=== PATIENT | female | born 1935 | race Caucasian/White ===

== ENCOUNTER 2016-06-11 20:05 | Emergency (ER) | payer MEDICARE, BC ==
[~2016-06-11] VITALS: Ht 160 cm; Wt 68.2 kg
[~2016-06-11 20:05] MED LIST: ARIMIDEX1 MG PO; ASPIRIN 81M81 MG/TA2 PO; B-121000 MCG PO; CALCIUM 600600 M2 PO; COZAAR100 MG PO; EYE DROPS 15 ML15 ML OP; HERCEPTIN440 MG/VIA; LEVAQUIN 5500 MG/TA1 PO; LORTAB 5/500 501 TAB PO; LUTEIN6 MG; NATURE'S BLE1000 MCG PO; PAMELOR50 MG PO; PRINIVIL10 MG PO; SEN-O-TABS8.6 MG PO; SENOKOT8.6 MG PO; VITAMIN C500 MG PO; VITAMIN D31000 IU PO; VITAMIN E1000 U/CAP PO; XALATAN EYE DROPS OU; ZOCOR 40MG40 MG PO
[2016-06-11 20:07] VITALS: BP 132/83; PULSE 115; TEMP 98.6
[2016-06-11 20:32] LABS: BASO % 0.3 % (0.0-2.0); EOS % 0.1 % (0-4.0); GRAN # 9.2 (1.4-6.5); GRAN % 86.6 % (42.2-75.2); HEMATOCRIT 42.4 % (37.0-47.0); LYMPH # 0.5 (1.2-3.4); LYMPH % 5.1 % (20.0-51.0); MEAN CELL VOLUME 89 fl (80.0-100.0); MEAN CORPUSCULAR HEMOGLOBIN 29 pg (27.0-31.0); MEAN CORPUSCULAR HGB CONC 33 g/dl (33.0-37.0); MEAN PLATELET VOLUME 9.9 fl (7.4-10.4); MONO # 0.8 (0.1-0.6); MONO % 7.5 % (1.7-9.3); PLATELET COUNT 234 K/mm3 (130-400); RED BLOOD COUNT 4.79 M/mm3 (4.10-5.30); REDCELL DISTRIBUTION WIDTH-CV 14.6 % (11.5-14.5); WHITE BLOOD COUNT 10.6 K/mm3 (4.8-10.8)
[2016-06-11 20:42] LABS: CALCIUM 9.3 mg/dL (8.4-10.2); CREATININE, serum 0.75 mg/dL (0.52-1.25); POTASSIUM 3.8 mmol/L (3.4-5.0)
[2016-06-11] MEDS ORDERED: ZOFRAN ODT4 MG PO (21:23)
== END 2016-06-11 21:30 | disposition home or self-care (01) ==
LOC: COL.ER 20:05
PROVIDERS: Emergency Medicine
DX: R11.2 Nausea with vomiting, unspecified (principal); R19.7 Diarrhea, unspecified
CPT/HCPCS: J2405; J7030

== ENCOUNTER 2016-06-11 23:05 | Inpatient (IN) | payer MEDICARE, BC ==
[~2016-06-11] VITALS: Ht 160 cm; Wt 69.7 kg
[~2016-06-11 23:05] MED LIST changes: +ZOFRAN ODT4 MG PO
[2016-06-12 04:02] VITALS: BP 121/49; PULSE 90; TEMP 98.7
[2016-06-12 05:05] LABS: PARTIAL THROMBOPLASTIN TIME 23.1 SECONDS (26.0-37.0)
[2016-06-12 08:20] VITALS: BP 132/42; PULSE 89; TEMP 97.6
[2016-06-12 11:38] VITALS: BP 144/64; PULSE 92; TEMP 99
[2016-06-12 17:01] VITALS: BP 159/60; PULSE 101; TEMP 100
[2016-06-12 17:44] LABS: ADJUSTED CALCIUM 8.5 mg/dL (8.4-10.2); ALBUMIN 3.5 gm/dL (3.5-5.0); BILIRUBIN,TOTAL 0.7 mg/dL (0.0-1.0); CALCIUM 8.1 mg/dL (8.4-10.2); CREATININE, serum 0.66 mg/dL (0.52-1.25); MAGNESIUM 1.7 mg/dL (1.6-2.3)
[2016-06-12 17:46] LABS: POTASSIUM 2.9 mmol/L (3.4-5.0)
[2016-06-12 18:17] LABS: ADD PATHOLOGY DIFF REVIEW NO
[2016-06-12 18:19] LABS: HEMATOCRIT 38.1 % (37.0-47.0); HEMOGLOBIN 12.4 g/dl (12.5-16.0); MEAN CELL VOLUME 90 fl (80.0-100.0); MEAN CORPUSCULAR HEMOGLOBIN 29 pg (27.0-31.0); MEAN CORPUSCULAR HGB CONC 33 g/dl (33.0-37.0); MEAN PLATELET VOLUME 9.9 fl (7.4-10.4); PLATELET COUNT 195 K/mm3 (130-400); RED BLOOD COUNT 4.23 M/mm3 (4.10-5.30); REDCELL DISTRIBUTION WIDTH-CV 15.1 % (11.5-14.5); WHITE BLOOD COUNT 8.4 K/mm3 (4.8-10.8)
[2016-06-12 18:41] LABS: BAND 51 % (0-10); BASOPHIL 1 % (0-2); NEUTROPHILS 37 % (42.0-75.2); PLATELET ESTIMATE NORMAL (NORMAL); TOTAL CELLS COUNTED 100
[2016-06-12 20:17] VITALS: BP 105/43; PULSE 91; TEMP 99.8
[2016-06-13 00:25] VITALS: BP 106/86; PULSE 102; TEMP 101.1
[2016-06-13 01:14] LABS: CALCIUM 7.8 mg/dL (8.4-10.2); CREATININE, serum 0.62 mg/dL (0.52-1.25); POTASSIUM 3.8 mmol/L (3.4-5.0)
[2016-06-13 03:13] VITALS: BP 108/59; PULSE 89; TEMP 99.2
[2016-06-13 08:10] LABS: POTASSIUM 3.7 mmol/L (3.4-5.0)
[2016-06-13 09:42] VITALS: BP 129/65; PULSE 119; TEMP 97.8
[2016-06-13 11:50] LABS: THYROID STIMULATING HORMONE 0.629 uIU/mL (0.465-4.680)
[2016-06-13 12:05] VITALS: BP 120/58; PULSE 92; TEMP 98.7
[2016-06-13 16:35] VITALS: BP 142/67; PULSE 86; TEMP 98.4
[2016-06-13 20:46] VITALS: BP 137/82; PULSE 85; TEMP 98.3
[2016-06-14] VITALS (7 sets, daily range): BP systolic 126–153; BP diastolic 57–91; PULSE 73–88; TEMP 98.1–98.7
[2016-06-14 07:56] LABS: MEAN CELL VOLUME 91 fl (80.0-100.0); MEAN CORPUSCULAR HGB CONC 32 g/dl (33.0-37.0); PLATELET COUNT 181 K/mm3 (130-400); RED BLOOD COUNT 3.91 M/mm3 (4.10-5.30); REDCELL DISTRIBUTION WIDTH-CV 15.3 % (11.5-14.5); WHITE BLOOD COUNT 3.3 K/mm3 (4.8-10.8)
[2016-06-14 07:57] LABS: HEMATOCRIT 35.5 % (37.0-47.0); HEMOGLOBIN 11.5 g/dl (12.5-16.0); MEAN CORPUSCULAR HEMOGLOBIN 29 pg (27.0-31.0)
[2016-06-15 03:37] VITALS: BP 134/61; PULSE 84; TEMP 98.5
[2016-06-15 07:34] VITALS: BP 146/77; PULSE 85; TEMP 97.7
[2016-06-15 09:05] LABS: CALCIUM 8.6 mg/dL (8.4-10.2); CREATININE, serum 0.63 mg/dL (0.52-1.25); MAGNESIUM 1.8 mg/dL (1.6-2.3); POTASSIUM 3.4 mmol/L (3.4-5.0)
[2016-06-15 11:31] VITALS: BP 151/76; PULSE 87; TEMP 98.6
[2016-06-15 15:49] VITALS: BP 128/58; PULSE 85; TEMP 98.7
[2016-06-15 20:00] VITALS: BP 145/75; PULSE 91; TEMP 98.4
[2016-06-15 22:48] VITALS: BP 143/71; PULSE 81; TEMP 98
[2016-06-16 03:58] VITALS: BP 118/52; PULSE 74; TEMP 98
[2016-06-16 06:39] LABS: HEMOGLOBIN 12.3 g/dl (12.5-16.0); MEAN CELL VOLUME 88 fl (80.0-100.0); MEAN CORPUSCULAR HEMOGLOBIN 29 pg (27.0-31.0); MEAN CORPUSCULAR HGB CONC 33 g/dl (33.0-37.0); MEAN PLATELET VOLUME 10.2 fl (7.4-10.4); PLATELET COUNT 228 K/mm3 (130-400); REDCELL DISTRIBUTION WIDTH-CV 14.8 % (11.5-14.5); WHITE BLOOD COUNT 5.7 K/mm3 (4.8-10.8)
[2016-06-16 06:49] LABS: HEMATOCRIT 36.9 % (37.0-47.0)
[2016-06-16 06:54] LABS: CALCIUM 9.1 mg/dL (8.4-10.2); CREATININE, serum 0.73 mg/dL (0.52-1.25); POTASSIUM 3.8 mmol/L (3.4-5.0)
[2016-06-16 07:49] VITALS: BP 147/76; PULSE 82; TEMP 97.8
[2016-06-16] MEDS ORDERED: CEPHALEXIN500 M1 PO (07:56)
[2016-06-16] MEDS ORDERED: MULTAQ400 MG PO (07:57)
[2016-06-16] MEDS ORDERED: ANTI-DIARRHEAL2 MG PO (08:00)
[2016-06-16 11:05] VITALS: BP 126/70; PULSE 87; TEMP 98
== END 2016-06-16 14:19 | disposition home or self-care (01) | DRG 262 ==
LOC: COL.ER 23:05 → MEDICAL 06-12 02:34
PROVIDERS: Internal Medicine; Nurse Practitioner Family
PROC: 0JH632Z Insertion of Monitoring Device into Chest Subcutaneous Tissue and Fascia, Percutaneous Approach (ICD-10-PCS; principal; 2016-06-13)
DX: I48.0 Paroxysmal atrial fibrillation (principal); I48.92 Unspecified atrial flutter; K52.9 Noninfective gastroenteritis and colitis, unspecified; E87.6 Hypokalemia; I10 Essential (primary) hypertension; Z85.3 Personal history of malignant neoplasm of breast; G62.9 Polyneuropathy, unspecified; Z91.81 History of falling
CPT/HCPCS: 99232-AI; 99239; C1764; C9113; G0378; G8978-GP; G8979-GP; J1644; J2405; J2550; J3480; J7030

== ENCOUNTER 2016-08-01 10:11 | Inpatient (IN) | payer MEDICARE, BC ==
[~2016-08-01] VITALS: Ht 160 cm; Wt 68.6 kg
[~2016-08-01 10:11] MED LIST changes: +ANTI-DIARRHEAL2 MG PO; +CEPHALEXIN500 M1 PO; +MULTAQ400 MG PO
[2016-08-05 08:43] VITALS: BP 138/64; PULSE 61; TEMP 98.4
[2016-08-05 09:14] LABS: BASO % 0.4 % (0.0-2.0); EOS # 0.1 (0.0-0.7); GRAN % 76.6 % (42.2-75.2); HEMATOCRIT 40.2 % (37.0-47.0); HEMOGLOBIN 13.2 g/dl (12.5-16.0); LYMPH # 1.1 (1.2-3.4); LYMPH % 13.8 % (20.0-51.0); MEAN CELL VOLUME 91 fl (80.0-100.0); MEAN CORPUSCULAR HEMOGLOBIN 30 pg (27.0-31.0); MEAN CORPUSCULAR HGB CONC 33 g/dl (33.0-37.0); MEAN PLATELET VOLUME 9.8 fl (7.4-10.4); MONO # 0.6 (0.1-0.6); MONO % 7.9 % (1.7-9.3); PLATELET COUNT 267 K/mm3 (130-400); RED BLOOD COUNT 4.43 M/mm3 (4.10-5.30); WHITE BLOOD COUNT 7.8 K/mm3 (4.8-10.8)
[2016-08-05 09:17] LABS: INR 0.9 (0.8-3.0); PROTHROMBIN TIME 10.2 SECONDS (9.7-12.8)
[2016-08-05 09:24] LABS: ADJUSTED CALCIUM 9.7 mg/dL (8.4-10.2); BILIRUBIN,TOTAL 0.7 mg/dL (0.0-1.0); CALCIUM 9.7 mg/dL (8.4-10.2); CREATININE, serum 0.67 mg/dL (0.52-1.25); MAGNESIUM 2.3 mg/dL (1.6-2.3); POTASSIUM 3.8 mmol/L (3.4-5.0); TOTAL PROTEIN 6.6 gm/dL (6.4-8.2)
[2016-08-05 11:46] VITALS: BP 150/69; PULSE 59; TEMP 97.6
[2016-08-05 16:14] VITALS: BP 137/63; PULSE 57; TEMP 97.7
[2016-08-05 19:27] VITALS: BP 115/50; PULSE 72; TEMP 97.4
[2016-08-05 23:11] VITALS: BP 111/45; PULSE 52; TEMP 97.5
[2016-08-06 03:54] VITALS: BP 117/51; PULSE 59; TEMP 97.5
[2016-08-06 07:46] VITALS: BP 123/58; PULSE 58; TEMP 97.4
[2016-08-06 11:45] VITALS: BP 125/61; PULSE 50; TEMP 97.8
[2016-08-06 16:26] VITALS: BP 120/58; PULSE 60; TEMP 96.7
[2016-08-06 21:41] VITALS: BP 118/59; PULSE 50; TEMP 97.2
[2016-08-07 00:32] VITALS: BP 129/58; PULSE 51; TEMP 97.8
[2016-08-07 04:30] VITALS: BP 121/66; PULSE 58; TEMP 98.2
[2016-08-07 08:07] VITALS: BP 119/52; PULSE 65; TEMP 97.9
[2016-08-07] MEDS ORDERED: BETAPACE 80MG80 MG PO (10:20)
[2016-08-07 11:35] VITALS: BP 141/62; PULSE 54; TEMP 98.8
== END 2016-08-07 12:30 | disposition home or self-care (01) | DRG 310 ==
LOC: MEDICAL 10:11
PROVIDERS: Internal Medicine Cardiovascular Disease
DX: I48.0 Paroxysmal atrial fibrillation (principal); I10 Essential (primary) hypertension; E78.5 Hyperlipidemia, unspecified; F41.9 Anxiety disorder, unspecified; I05.9 Rheumatic mitral valve disease, unspecified

== ENCOUNTER 2016-08-16 09:26 | Emergency (ER) | payer MEDICARE, BC ==
[~2016-08-16] VITALS: Ht 160 cm; Wt 66.8 kg
[~2016-08-16 09:26] MED LIST changes: +BETAPACE 80MG80 MG PO
[2016-08-16 09:41] VITALS: BP 138/63; TEMP 99.1
[2016-08-16] MEDS ORDERED: ZITHROMAX Z PA250 MG PO (10:21)
[2016-08-16 11:10] VITALS: PULSE 60
== END 2016-08-16 11:11 | disposition home or self-care (01) ==
LOC: COL.ER 09:26
DX: J01.90 Acute sinusitis, unspecified (principal); I10 Essential (primary) hypertension

== ENCOUNTER → 2017-02-17 | Outpatient (CLI) | payer MEDICARE, BC ==
[~2017-02-17] MED LIST changes: +ZITHROMAX Z PA250 MG PO
== END ==
LOC: MC.RAD 09:27
DX: Z12.31 Encounter for screening mammogram for malignant neoplasm of breast (principal); Z90.12 Acquired absence of left breast and nipple

== ENCOUNTER 2017-05-25 19:34 | Emergency (ER) | payer MEDICARE, BC ==
[~2017-05-25] VITALS: Ht 160 cm; Wt 67.3 kg
[2017-05-25 19:34] VITALS: TEMP 98.7
[2017-05-25 20:12] LABS: BASO % 0.2 % (0.0-2.0); EOS % 0.1 % (0-4.0); GRAN # 11.5 (1.4-6.5); GRAN % 88.5 % (42.2-75.2); HEMATOCRIT 41.2 % (37.0-47.0); HEMOGLOBIN 13.5 g/dl (12.5-16.0); LYMPH # 0.7 (1.2-3.4); LYMPH % 5.7 % (20.0-51.0); MEAN CELL VOLUME 93 fl (80.0-100.0); MEAN CORPUSCULAR HEMOGLOBIN 30 pg (27.0-31.0); MEAN CORPUSCULAR HGB CONC 33 g/dl (33.0-37.0); MEAN PLATELET VOLUME 10.1 fl (7.4-10.4); MONO # 0.6 (0.1-0.6); PLATELET COUNT 258 K/mm3 (130-400); RED BLOOD COUNT 4.45 M/mm3 (4.10-5.30); WHITE BLOOD COUNT 12.9 K/mm3 (4.8-10.8)
[2017-05-25 20:21] LABS: ALBUMIN 4.6 gm/dL (3.5-5.0); BILIRUBIN,TOTAL 0.8 mg/dL (0.0-1.0); CALCIUM 9.5 mg/dL (8.4-10.2); CREATININE, serum 0.92 mg/dL (0.52-1.25); POTASSIUM 3.8 mmol/L (3.4-5.0)
[2017-05-25 21:48] LABS: COLLECTION METHOD CLEAN CATCH
[2017-05-25 21:54] LABS: PH 7 (5-8); SQUAMOUS EPITHELIAL None Seen /hpf; URINE APPEARANCE Clear; URINE BACTERIA None Seen /hpf; URINE BILIRUBIN Negative (NEGATIVE); URINE BLOOD 1+ (NEGATIVE); URINE COLOR Straw; URINE GLUCOSE 1+ (NEGATIVE); URINE KETONE Trace (NEGATIVE); URINE LEUKOCYTE ESTERASE Negative (NEGATIVE); URINE PROTEIN(semi-quant) Negative (NEGATIVE); URINE RBC 0-2 /hpf; URINE UROBILINOGEN Negative (NEGATIVE)
[2017-05-25] MEDS ORDERED: ZOFRAN ODT4 MG PO (22:33)
[2017-05-25] MEDS ORDERED: NORCO 325 MG-51 TAB PO (22:33)
[2017-05-25 22:46] VITALS: BP 125/76; PULSE 98
== END 2017-05-25 23:00 | disposition home or self-care (01) ==
LOC: COL.ER 19:34
PROVIDERS: Emergency Medicine
DX: N23 Unspecified renal colic (principal); E86.0 Dehydration; I48.91 Unspecified atrial fibrillation; Z85.3 Personal history of malignant neoplasm of breast; Z90.710 Acquired absence of both cervix and uterus; Z92.21 Personal history of antineoplastic chemotherapy; Z79.82 Long term (current) use of aspirin
CPT/HCPCS: J1885; J2405; J3010; J7030; Q9967

== ENCOUNTER → 2017-12-30 | Outpatient (CLI) | payer MEDICARE, BC ==
[~2017-12-30] MED LIST changes: +NORCO 325 MG-51 TAB PO
== END ==
LOC: COL.RAD 10:18
DX: D35.2 Benign neoplasm of pituitary gland (principal); Z98.890 Other specified postprocedural states
CPT/HCPCS: A9585

== ENCOUNTER → 2018-03-09 | Outpatient (CLI) | payer MEDICARE, BC | LOC: MC.RAD 09:35 | DX: Z12.31 Encounter for screening mammogram for malignant neoplasm of breast (principal) ==

== ENCOUNTER → 2019-03-08 | Outpatient (CLI) | payer MEDICARE, BC | LOC: COL.RAD 09:36 | DX: Z01.812 Encounter for preprocedural laboratory examination (principal); D35.2 Benign neoplasm of pituitary gland; E21.3 Hyperparathyroidism, unspecified; E89.3 Postprocedural hypopituitarism; E55.9 Vitamin D deficiency, unspecified | CPT/HCPCS: A9585 ==

== ENCOUNTER → 2019-03-14 | Outpatient (CLI) | payer MEDICARE, BC | LOC: COL.RAD 12:00 | DX: I82.612 Acute embolism and thrombosis of superficial veins of left upper extremity (principal) ==

== ENCOUNTER → 2019-04-25 | Outpatient (CLI) | payer MEDICARE, BC | LOC: MC.RAD 07:08 | DX: Z12.31 Encounter for screening mammogram for malignant neoplasm of breast (principal); N64.89 Other specified disorders of breast ==

== ENCOUNTER → 2020-04-30 | Outpatient (CLI) | payer MEDICARE, BC | LOC: MC.RAD 09:45 | DX: Z12.31 Encounter for screening mammogram for malignant neoplasm of breast (principal) ==

== ENCOUNTER → 2021-01-18 | Outpatient (CLI) | payer MEDICARE, BC | LOC: COL.RAD 01-08 08:00 | DX: I77.4 Celiac artery compression syndrome (principal); I25.10 Atherosclerotic heart disease of native coronary artery without angina pectoris; N20.0 Calculus of kidney; Z85.3 Personal history of malignant neoplasm of breast | CPT/HCPCS: Q9967 ==

== ENCOUNTER 2021-09-12 03:52 | Emergency (ER) | payer MEDICARE, BC ==
[~2021-09-12] VITALS: Ht 160 cm; Wt 70.5 kg
[2021-09-12 03:53] VITALS: TEMP 98.1
[2021-09-12 04:28] LABS: BASO % 0.1 % (0.0-2.0); EOS # 0.1 K/mm3 (0.0-0.7); EOS % 1.2 % (0.0-4.0); GRAN # 5.3 K/mm3 (1.4-6.5); GRAN % 59.6 % (42.2-75.2); HEMATOCRIT 41.2 % (37.0-47.0); HEMOGLOBIN 13.6 g/dl (12.5-16.0); LYMPH # 2.6 K/mm3 (1.2-3.4); LYMPH % 28.7 % (20.0-51.0); MEAN CELL VOLUME 89 fl (80.0-100.0); MEAN CORPUSCULAR HEMOGLOBIN 29 pg (27-31); MEAN CORPUSCULAR HGB CONC 33 g/dl (33.0-37.0); MEAN PLATELET VOLUME 10.4 fl (7.4-10.4); MONO # 0.9 K/mm3 (0.1-0.6); MONO % 10.1 % (1.7-9.3); PLATELET COUNT 215 K/mm3 (130-400); RED BLOOD COUNT 4.62 M/mm3 (4.10-5.30); REDCELL DISTRIBUTION WIDTH-CV 14.3 % (11.5-14.5)
[2021-09-12 04:40] LABS: ALBUMIN 3.7 gm/dL (3.4-4.8); BILIRUBIN,TOTAL 0.6 mg/dL (0.2-1.2); CALCIUM 9.2 mg/dL (8.4-10.2); CREATININE, serum 0.77 mg/dL (0.57-1.11); POTASSIUM 3.7 mmol/L (3.5-4.5); TOTAL PROTEIN 6.8 gm/dL (6.2-8.1)
[2021-09-12 04:44] LABS: COLLECTION METHOD CLEAN CATCH
[2021-09-12 04:46] LABS: TROPONIN-I 0.015 ng/mL (0.00-0.033)
[2021-09-12 04:54] LABS: PH 8 (5-8); SQUAMOUS EPITHELIAL None Seen /hpf (0-10); URINE APPEARANCE Clear (CLEAR/HAZY); URINE BACTERIA Rare /hpf (NONE SEEN); URINE BILIRUBIN Negative (NEGATIVE); URINE BLOOD 1+ (NEGATIVE); URINE COLOR Colorless (YELLOW); URINE GLUCOSE Negative (NEGATIVE); URINE KETONE Negative (NEGATIVE); URINE LEUKOCYTE ESTERASE Negative (NEGATIVE); URINE NITRATE Negative (NEGATIVE); URINE PROTEIN(semi-quant) Negative (NEGATIVE); URINE RBC 0-2 /hpf (0-2); URINE UROBILINOGEN Negative (NEGATIVE)
[2021-09-12 05:27] LABS: TSH w REFLEX 5.013 uIU/mL (0.350-4.940)
[2021-09-12 06:14] VITALS: BP 155/96; PULSE 86
== END 2021-09-12 06:32 | disposition home or self-care (01) ==
LOC: COL.ER 03:52
PROVIDERS: Emergency Medicine
DX: R53.81 Other malaise (principal); I10 Essential (primary) hypertension; Z20.822 Contact with and (suspected) exposure to COVID-19

== ENCOUNTER → 2021-10-30 | Outpatient (CLI) | payer MEDICARE, BC | LOC: COL.VAS 12:14 | DX: I51.7 Cardiomegaly (principal); C50.919 Malignant neoplasm of unspecified site of unspecified female breast; I34.0 Nonrheumatic mitral (valve) insufficiency ==